=== PATIENT | female | born 1940 | race Caucasian/White ===

== ENCOUNTER 2018-12-02 23:27 | Inpatient (IN) | payer MEDICARE, BC ==
[2018-12-02] MEDS ORDERED: RINGERS SOLUTION,LACTATED 1,000 ML IV ONE (23:42)
[2018-12-02] MEDS ORDERED: ACETAMINOPHEN 325 MG TABLET PO ONE (23:43)
--- NOTE | 2018-12-02 23:49 | ER Document Report ---
ED General - General Stated Complaint: FLANK PAIN Time Seen by Provider: 12/02/18 23:29 - HPI Notes: Patient is a 78-year-old female that presents to the emergency department for chief complaint of headache, confusion and abdominal pain. Patient's daughter states that she is usually very oriented and highly functioning. Today she seemed to be confused and was disoriented to time. Patient began complaining of lower abdominal pressure and pain hence states it feels like her bladder has prolapsed. She reports a history of bladder prolapse in the past. She states she has had urinary urgency and incontinence today but denies any dysuria. Patient denies known fevers or chills, cough and congestion, nausea and vomiting. She is also complaining of pain in the back of her neck and right scapular region which she states is chronic for her. She did take Tylenol around 2 PM this afternoon. Past Medical History: Hypertension, bladder prolapse, varicose veins Past Surgical History: Reviewed in chart Social History: Denies tobacco and alcohol use Family History: Reviewed and noncontributory for presenting illness Allergies: Reviewed, see documented allergy list. REVIEW OF SYSTEMS: CONSTITUTIONAL : No fever No chills No diaphoresis No recent illness EENT: No vision changes No congestion No sore throat CARDIOVASCULAR: No chest pain No palpitations RESPIRATORY: No shortness of breath No cough No difficulty breathing GASTROINTESTINAL: abdominal pain No nausea No vomiting No diarrhea GENITOURINARY: No dysuria No hematuria difficulty urinating Urinary urgency Urinary incontinence MUSCULOSKELETAL: No back pain No leg pain No arm pain SKIN: No rashes No lesions LYMPHATIC: No swollen, enlarged glands. NEUROLOGICAL: No lightheadedness No headache No weakness No paresthesias PSYCHIATRIC: No anxiety No depression PHYSICAL EXAMINATION: Vital signs reviewed, nursing noted reviewed. GENERAL: Well-appearing, well-nourished and in no acute distress. HEAD: Atraumatic, normocephalic. EYES: Eyes appear normal, extraocular movements intact, sclera anicteric, conjunctiva are normal. ENT: nares patent, oropharynx clear without exudates. Moist mucous membranes. NECK: Normal range of motion, supple without lymphadenopathy LUNGS: Breath sounds clear to auscultation bilaterally and equal. No wheezes rales or rhonchi. HEART: Regular rate and rhythm without murmurs ABDOMEN: Soft, nontender, normoactive bowel sounds. No rebound, guarding, or rigidity. No masses appreciated. : Vulvar erythema, minimal bladder prolapse EXTREMITIES: Nontender, good range of motion, no pitting or edema. NEUROLOGICAL: Oriented to person and place, disoriented to time. Moves all extremities spontaneously Motor and sensory grossly intact on exam. PSYCH: Normal mood, normal affect. SKIN: Warm, Dry, normal turgor, no rashes or lesions noted on exposed skin - Related Data Allergies/Adverse Reactions: cephalexin [From Keflex] Allergy (Verified 12/03/18 01:40) sulfamethoxazole [From Bactrim] Allergy (Verified 12/03/18 01:40) tamsulosin [From Flomax] Allergy (Verified 12/03/18 01:40) trimethoprim [From Bactrim] Allergy (Verified 12/03/18 01:40) Past Medical History - Social History Smoking Status: Never Smoker Family History: Reviewed & Not Pertinent Physical Exam - Vital signs Vitals: Resp Pulse Ox 24 H 93 12/02/18 23:37 12/02/18 23:37 Course - Re-evaluation Re-evalutation: 12/02/18 23:42 Vitals reviewed. Nursing notes reviewed. Patient's blood pressure was low when EMS arrived and has improved since receiving 500 mL normal saline by EMS. She is running a fever and will be given Tylenol. Patient placed on telemetry monitoring and IV fluids have been ordered. 12/03/18 01:34 Patient was reevaluated. Her blood pressure has significantly improved from 85 systolic for EMS 149 after 1500 mL IV bolus. Patient states she is feeling better after Tylenol. Her lab work shows elevated WBC count at 15 and she is meeting sepsis criteria and has been given broad-spectrum antibiotics. She has a normal lactic acid level. Urinalysis is negative for infection. Urine cultu re has been sent. Chest x-ray shows no acute pulmonary disease with questionable fluid around the left lung. Patient's lab work does show a slight elevation of total bili with normal LFTs and direct bili. She has no right upper quadrant tenderness to suggest cholecystitis. CT scan of her abdomen will be added on for further evaluation of her lower abdominal pain in the setting of sepsis without source. Patient's care was discussed with Dr. Ross who has accepted admission. Patient and family in agreement with this plan of care. Laboratory 12/02/18 12/02/18 12/02/18 23:42 23:42 23:42 WBC 15.2 H RBC 3.78 Hgb 12.0 Hct 36.1 MCV 96 MCH 31.9 MCHC 33.3 RDW 13.0 Plt Count 243 Seg Neutrophils % 82.0 H Lymphocytes % 9.5 L Monocytes % 7.4 Eosinophils % 0.5 Basophils % 0.6 Absolute Neutrophils 12.5 H Absolute Lymphocytes 1.4 Absolute Monocytes 1.1 Absolute Eosinophils 0.1 Absolute Basophils 0.1 PT 13.8 INR 1.01 VBG pH VBG pCO2 VBG HCO3 VBG Base Excess Sodium 138.4 Potassium 4.2 Chloride 102 Carbon Dioxide 27 Anion Gap 9 BUN 18 Creatinine 1.17 Est GFR ( Amer) 54 L Est GFR (Non-Af Amer) 45 L Glucose 140 H Lactic Acid Calcium 9.3 Total Bilirubin 2.9 H Direct Bilirubin 0.4 Neonat Total Bilirubin Not Reportable Neonat Direct Bilirubin Not Reportable Neonat Indirect Bili Not Reportable AST 24 ALT 34 Alkaline Phosphatase 58 Troponin I Total Protein 6.9 Albumin 3.9 Urine Color Urine Appearance Urine pH Ur Specific [place] Urine Protein Urine Glucose (UA) Urine Ketones Urine Blood Urine Nitrite Urine Bilirubin Urine Urobilinogen Ur Leukocyte Esterase Urine WBC (Auto) Urine RBC (Auto) U Hyaline Cast (Auto) Squamous Epi Cells Auto Urine Mucus (Auto) Urine Ascorbic Acid 12/02/18 12/02/18 12/03/18 23:42 23:42 00:12 WBC RBC Hgb Hct MCV MCH MCHC RDW Plt Count Seg Neutrophils % Lymphocytes % Monocytes % Eosinophils % Basophils % Absolute Neutrophils Absolute Lymphocytes Absolute Monocytes Absolute Eosinophils Absolute Basophils PT INR VBG pH Cancelled VBG pCO2 Cancelled VBG HCO3 Cancelled VBG Base Excess Cancelled Sodium Potassium Chloride Carbon Dioxide Anion Gap BUN Creatinine Est GFR ( Amer) Est GFR (Non-Af Amer) Glucose Lactic Acid 1.6 Calcium Total Bilirubin Direct Bilirubin Neonat Total Bilirubin Neonat Direct Bilirubin Neonat Indirect Bili AST ALT Alkaline Phosphatase Troponin I < 0.012 Total Protein Albumin Urine Color Urine Appearance Urine pH Ur Specific [place] Urine Protein Urine Glucose (UA) Urine Ketones Urine Blood Urine Nitrite Urine Bilirubin Urine Urobilinogen Ur Leukocyte Esterase Urine WBC (Auto) Urine RBC (Auto) U Hyaline Cast (Auto) Squamous Epi Cells Auto Urine Mucus (Auto) Urine Ascorbic Acid 12/03/18 12/03/18 00:37 00:47 WBC RBC Hgb Hct MCV MCH MCHC RDW Plt Count Seg Neutrophils % Lymphocytes % Monocytes % Eosinophils % Basophils % Absolute Neutrophils Absolute Lymphocytes Absolute Monocytes Absolute Eosinophils Absolute Basophils PT INR VBG pH 7.42 VBG pCO2 37.0 VBG HCO3 23.2 VBG Base Excess -1.0 Sodium Potassium Chloride Carbon Dioxide Anion Gap BUN Creatinine Est GFR ( Amer) Est GFR (Non-Af Amer) Glucose Lactic Acid Calcium Total Bilirubin Direct Bilirubin Neonat Total Bilirubin Neonat Direct Bilirubin Neonat Indirect Bili AST ALT Alkaline Phosphatase Troponin I Total Protein Albumin Urine Color YELLOW Urine Appearance CLOUDY Urine pH 6.0 Ur Specific [place] 1.017 Urine Protein 100 H Urine Glucose (UA) NEGATIVE Urine Ketones NEGATIVE Urine Blood NEGATIVE Urine Nitrite NEGATIVE Urine Bilirubin NEGATIVE Urine Urobilinogen 2.0 H Ur Leukocyte Esterase NEGATIVE Urine WBC (Auto) 4 Urine RBC (Auto) 1 U Hyaline Cast (Auto) 28 Squamous Epi Cells Auto 1 Urine Mucus (Auto) MANY Urine Ascorbic Acid NEGATIVE Chest X-Ray 12/02/18 23:30 IMPRESSION: Scarring versus fluid in the left lung base Mild cardiac enlargement No acute abnormality is identified. Head CT 12/02/18 23:53 IMPRESSION: 1. No acute intracranial findings. 2. Moderate chronic ischemic white matter changes. - Vital Signs Vital signs: Temp Pulse Resp BP Pulse Ox 98.7 F 85 19 149/53 H 95 12/03/18 01:41 12/02/18 23:46 12/03/18 01:00 12/03/18 01:01 12/03/18 01:00 - Laboratory Result Diagrams: 12/02/18 23:42 12/02/18 23:42 Laboratory results interpreted by me: 12/02/18 12/02/18 12/03/18 23:42 23:42 00:37 WBC 15.2 H Seg Neutrophils % 82.0 H Lymphocytes % 9.5 L Absolute Neutrophils 12.5 H Est GFR ( Amer) 54 L Est GFR (Non-Af Amer) 45 L Glucose 140 H Total Bilirubin 2.9 H Urine Protein 100 H Urine Urobilinogen 2.0 H - EKG Interpretation by Me Additional EKG results interpreted by me: 12/02/18 23:49 Interpreted by myself [id number]: Normal sinus rhythm, rate 86, normal axis, no STEMI Discharge - Discharge Clinical Impression: Lower abdominal pain, Total bilirubin, elevated, Diverticulitis Sepsis Qualifiers: Sepsis type: sepsis due to unspecified organism Qualified Code(s): A41.9 - Sepsis, unspecified organism Altered mental status, unspecified Qualifiers: Altered mental status type: disorientation Qualified Code(s): R41.0 - Di sorientation, unspecified Condition: Stable Disposition: ADMITTED INPATIENT Admitting Provider: Vandana (Hospitalist) Unit Admitted: Telemetry
[2018-12-02 23:54] LABS: ABSOLUTE BASOPHILS # (AUTO) 0.1 10^3/uL (0.0-0.2); ABSOLUTE EOSINOPHILS # (AUTO) 0.1 10^3/uL (0.0-0.6); ABSOLUTE LYMPHOCYTES (AUTO) 1.4 10^3/uL (0.5-4.7); ABSOLUTE MONOCYTES (AUTO) 1.1 10^3/uL (0.1-1.4); ABSOLUTE NEUT (AUTO) 12.5 10^3/uL (1.7-8.2); BASOPHILS % (AUTO) 0.6 % (0-2); EOSINOPHILS % (AUTO) 0.5 % (0-6); HEMATOCRIT 36.1 % (36.0-47.0); LYMPHOCYTES % (AUTO) 9.5 % (13-45); MEAN CORPUSCULAR HEMOGLOBIN 31.9 pg (27.0-33.4); MEAN CORPUSCULAR HGB CONC 33.3 g/dL (32.0-36.0); MEAN CORPUSCULAR VOLUME 96 fl (80-97); MONOCYTES % (AUTO) 7.4 % (3-13); PLATELET COUNT 243 10^3/uL (150-450); RED BLOOD COUNT 3.78 10^6/uL (3.72-5.28); TOTAL CELLS COUNTED % (AUTO) 100 %; WHITE BLOOD COUNT 15.2 10^3/uL (4.0-10.5)
[2018-12-03 00:04] LABS: INTERNATIONAL RATION (INR) 1.01; PROTHROMBIN TIME 13.8 SEC (11.4-15.4)
[2018-12-03 00:08] LABS: ALANINE AMINOTRANSFERASE 34 U/L (9-52); ALBUMIN 3.9 g/dL (3.5-5.0); ALKALINE PHOSPHATASE 58 U/L (38-126); ANION GAP 9 (5-19); ASPARTATE AMINO TRANSFERASE 24 U/L (14-36); BILIRUBIN,DIRECT 0.4 mg/dL (0.0-0.4); BILIRUBIN,TOTAL 2.9 mg/dL (0.2-1.3); BLOOD UREA NITROGEN 18 mg/dL (7-20); CALCIUM 9.3 mg/dL (8.4-10.2); CARBON DIOXIDE 27 mmol/L (22-30); CHLORIDE 102 mmol/L (98-107); GLUCOSE 140 mg/dL (75-110); POTASSIUM 4.2 mmol/L (3.6-5.0); SODIUM 138.4 mmol/L (137-145); TOTAL PROTEIN 6.9 g/dL (6.3-8.2)
[2018-12-03] MEDS ORDERED: CEFTRIAXONE INJ 1000 MG VIAL IV ONE (00:11)
--- NOTE | 2018-12-03 00:18 | RADIOLOGY REPORT (SQ) ---
EXAM DESCRIPTION: XR CHEST 1 VIEW COMPLETED DATE/TME: 12/02/2018 23:30 CLINICAL HISTORY: 78 years Female weakness COMPARISON: None. FINDINGS: Mild cardiac enlargement. Lungs appear hyperinflated. Right lung is clear. There is scarring or fluid in the left lung base. No evidence of edema or consolidation. Degenerative changes in the shoulders bilaterally IMPRESSION: Scarring versus fluid in the left lung base Mild cardiac enlargement No acute abnormality is identified.
--- NOTE | 2018-12-03 00:38 | RADIOLOGY REPORT (SQ) ---
EXAM DESCRIPTION: [facility]: CT HEAD WITHOUT IV CONTRAST CLINICAL HISTORY: 78 years Female; headache TECHNIQUE: Noncontrast CT head. All CT scans at this facility use dose modulation, iterative reconstruction, and/or weight based dosing when appropriate to reduce radiation dose to as low as reasonably achievable. COMPARISON: None. FINDINGS: No acute hemorrhage or mass effect. There are scattered low-density changes in the cerebral white matter bilaterally, nonspecific but typical for moderate chronic small vessel disease. There is no focal for pulmonary lacunar infarct in the posterior margin of the right putamen. No acute cortical edema. Visualized portions of paranasal sinuses and mastoids are clear. Visualized portions of the calvarium are within normal limits. IMPRESSION: 1. No acute intracranial findings. 2. Moderate chronic ischemic white matter changes.
[2018-12-03 00:56] LABS: VENOUS BLOOD HCO3 23.2 mmol/L (20-32); VENOUS BLOOD PH 7.42 (7.30-7.42)
[2018-12-03] MEDS ORDERED: CEFTRIAXONE 1 GM/D5W RTU 1 GM/50 ML RTUPB IV ONE ×2 (01:00→01:06)
[2018-12-03 01:01] LABS: APPEARANCE,URINE CLOUDY; BILIRUBIN,URINE NEGATIVE (NEGATIVE); GLUCOSE, URINE NEGATIVE (NEGATIVE); KETONES,URINE NEGATIVE (NEGATIVE); LEUKOCYTE ESTERASE,URINE NEGATIVE (NEGATIVE); NITRITE,URINE NEGATIVE (NEGATIVE); PROTEIN,URINE 100 mg/dL (NEGATIVE); URINE SPECIFIC GRAVITY 1.017
[2018-12-03 01:07] LABS: COLOR,URINE YELLOW
[2018-12-03] MEDS ORDERED: VANCOMYCIN HCL INJ 1000 MG VIAL IV ONE (01:27)
--- NOTE | 2018-12-03 02:16 | RADIOLOGY REPORT (SQ) ---
CLINICAL HISTORY: abdominal pain COMPARISON: None. TECHNIQUE: CT ABDOMEN PELVIS WITH IV CONTRAST on 12/03/2018 1:13 AM CDT This exam was performed according to our departmental dose-optimization program, which includes automated exposure control, adjustment of the mA and/or kV according to patient size and/or use of iterative reconstruction technique. FINDINGS: Lower lungs are clear. Abdomen: The liver is normal in appearance. There is no biliary dilatation. Gallbladder is normal in appearance. The pancreas and spleen are normal in appearance. The adrenal glands and kidneys are unremarkable. Abdominal aorta is normal in course and caliber without aneurysm. There is no free air. There is no retroperitoneal adenopathy.Abdominal aorta is densely calcified without aneurysm. Pelvis: There are multiple small distal colonic diverticula. There is inflammation surrounding the mid sigmoid colon in the area of a large diverticulum. Urinary bladder is unremarkable. There is no free fluid. Appendix is normal. Skeleton: There are no acute osseous findings. No suspicious bony lesions. IMPRESSION: Suspect acute mid sigmoid colonic diverticulitis.
[2018-12-03] MEDS ORDERED: MAG HYDROX/AL HYDROX/SIMETH SUSP 30 ML UDCUP PO PRN (02:26)
[2018-12-03] MEDS ORDERED: MAGNESIUM HYDROXIDE SUSP 30 ML UDCUP PO PRN (02:26)
[2018-12-03] MEDS ORDERED: RINGERS SOLUTION,LACTATED 1,000 ML IV PRN (02:26)
[2018-12-03] MEDS ORDERED: ONDANSETRON HCL INJ/PF 4 MG/2 ML SDV IV PRN (02:26)
[2018-12-03] MEDS ORDERED: TEMAZEPAM 15 MG CAPSULE PO PRN (02:26)
[2018-12-03] MEDS ORDERED: MORPHINE SULFATE 10 MG/ML INJ IV PRN ×4 (02:32→02:41)
[2018-12-03] MEDS ORDERED: HYDRALAZINE HCL INJ/PF 20 MG/1 ML SDV IV PRN (02:32)
[2018-12-03] MEDS ORDERED: ERTAPENEM SODIUM INJ 1 GM VIAL IV PRN (02:40)
[2018-12-03] MEDS ORDERED: ERTAPENEM SODIUM 1 GM in NORMAL SALINE 50 ML IV SCH ×2 (06:00→08:00)
--- NOTE | 2018-12-03 06:06 | PDOC H&P ---
History of Present Illness Admission Date/PCP: 12/03/2018 GILDA SOTO MD Patient complains of: Abdominal pain History of Present Illness: TRACEY PORRAS is a 78 year old female who presented to the emergency room with an acute history of abdominal pain. Patient along with family admits that she developed lower abdominal pain described as a a moderately severe, nonradiating, continuous pressure sensation in the central lower abdomen/pelvis accompanied by urinary urgency and incontinence. The patient and her family admit that she has had similar prior symptoms with prolapse of her urinary bladder. They have not identified any aggravating or ameliorating factors for her current abdominal pain. In the emergency room she was found to have a low-grade fever, and elevated white blood count and EMS indicated hypotension on their initial assessment that had resolved at the time her BP was recorded in the ER. Therefore she met SIRS criterion and her evaluation had been essentially unrem arkable until a CT of abdomen pelvis was obtained which revealed mild to moderate diverticulitis of the sigmoid region. Patient was subsequently admitted to the hospital for further evaluation and treatment. Past Medical History Cardiac Medical History: Reports: Hypertension, Other - Varicose veins Pulmonary Medical History: Denies: Asthma, Chronic Obstructive Pulmonary Disease (COPD) EENT Medical History: Reports: Eyes - Prescription eyeglasses Denies: Cataracts, Ears - Hearing aids Neurological Medical History: Denies: Hemorrhagic CVA, Ischemic CVA, Seizures Endocrine Medical History: Denies: Diabetes Mellitus Type 1, Diabetes Mellitus Type 2, Hyperthyroidism, Hypothyroidism Renal/ Medical History: Reports: Other - History of urinary bladder prolapse Denies: Chronic Kidney Disease, Nephrolithiasis Malignancy Medical History: Reports: None GI Medical History: Denies: Cirrhosis, Hepatitis Musculoskeltal Medical History: Reports: Arthritis Denies: Gout Skin Medical History: Denies: Eczema, Psoriasis Psychiatric Medical History: Denies: Alcohol Dependency, Substance Abuse, Tobacco Dependency Traumatic Medical History: Reports: None Hematology: Denies: Anemia, Bleeding Tendencies Infectious Medical History: Reports: None Past Surgical History Past Surgical History: Reports: Other - Repair of prolapsed urinary bladder Social History Information Source: Patient Lives with: Spouse/Significant other Smoking Status: Never Smoker Frequency of Alcohol Use: None Hx Recreational Drug Use: No Drugs: None Hx Prescription Drug Abuse: No - Advance Directive Resuscitation Status: Full Code Surrogate healthcare decision maker:: Felicia Trimble her daughter Family History Family History: Hypertension. denies: CAD, DM, Malignancy Parental Family History Reviewed: Yes Children Family History Reviewed: No Sibling(s) Family History Reviewed.: Yes Medication/Allergy Allergies/Adverse Reactions: cephalexin [From Keflex] Allergy (Verified 12/03/18 01:40) sulfamethoxazole [From Bactrim] Allergy (Verified 12/03/18 01:40) tamsulosin [From Flomax] Allergy (Verified 12/03/18 01:40) trimethoprim [From Bactrim] Allergy (Verified 12/03/18 01:40) Review of Systems Constitutional: ABSENT: chills, fever(s) Eyes: ABSENT: visual disturbances, other - Eye pain Ears: ABSENT: hearing changes, other - Ear pain Nose, Mouth, and Throat: ABSENT: mouth pain, sore throat Cardiovascular: ABSENT: chest pain, palpitations Respiratory: ABSENT: cough, dyspnea Gastrointestinal: PRESENT: as per HPI, abdominal pain. ABSENT: constipation, diarrhea, nausea, vomiting Genitourinary: PRESENT: as per HPI, other - Urinary urgency and frequency. ABSENT: dysuria, hematuria Musculoskeletal: PRESENT: back pain - Chronic upper back, neck and shoulder pain on the left. ABSENT: joint swelling, muscle weakness Integumentary: ABSENT: pruritus, rash Neurological: ABSENT: confusion, convulsions, focal weakness, syncope Psychiatric: ABSENT: anxiety, depression Endocrine: ABSENT: cold intolerance, heat intolerance Hematologic/Lymphatic: ABSENT: easy bleeding, easy bruising Physical Exam Vital Signs: Temp Pulse Resp BP Pulse Ox 98.7 F 85 19 149/53 H 95 12/03/18 01:41 12/02/18 23:46 12/03/18 01:00 12/03/18 01:01 12/03/18 01:00 Intake & Output 12/01/18 12/02/18 12/03/18 23:59 23:59 23:59 Intake Total 1050 Balance 1050 Weight 84.6 kg General appearance: PRESENT: no acute distress, cooperative, obese Head exam: PRESENT: atraumatic, normocephalic Eye exam: ABSENT: conjunctival injection, scleral icterus Ear exam: PRESENT: normal external ear exam. ABSENT: bleeding, drainage Mouth exam: PRESENT: dry mucosa, neck supple Neck exam: ABSENT: JVD, thyromegaly, tracheal deviation Respiratory exam: PRESENT: clear to auscultation [place], symmetrical, unlabored Cardiovascular exam: PRESENT: RRR. ABSENT: clicks, gallop, rubs Pulses: PRESENT: normal radial pulses, normal dorsalis pedis pul Vascular exam: PRESENT: normal capillary refill. ABSENT: pallor GI/Abdominal exam: PRESENT: normal bowel sounds, soft, tenderness - Moderate tenderness in the lower abdomen (suprapubic) region on palpation. Rectal exam: PRESENT: deferred Extremities exam: ABSENT: joint swelling, pedal edema Musculoskeletal exam: ABSENT: deformity, dislocation Neurological exam: PRESENT: alert, oriented to person, oriented to place, oriented to time, oriented to situation, CN II-XII grossly intact. ABSENT: motor sensory deficit Psychiatric exam: PRESENT: appropriate affect, normal mood Skin exam: PRESENT: dry, intact, warm. ABSENT: jaundice, rash, urticaria Results Laboratory Results: 12/02/18 23:42 12/02/18 23:42 12/02/18 12/02/18 12/02/18 23:42 23:42 23:42 WBC 15.2 H RBC 3.78 Hgb 12.0 Hct 36.1 MCV 96 MCH 31.9 MCHC 33.3 RDW 13.0 Plt Count 243 Seg Neutrophils % 82.0 H Lymphocytes % 9.5 L Monocytes % 7.4 Eosinophils % 0.5 Basophils % 0.6 Absolute Neutrophils 12.5 H Absolute Lymphocytes 1.4 Absolute Monocytes 1.1 Absolute Eosinophils 0.1 Absolute Basophils 0.1 VBG pH VBG pCO2 VBG HCO3 VBG Base Excess Sodium 138.4 Potassium 4.2 Chloride 102 Carbon Dioxide 27 Anion Gap 9 BUN 18 Creatinine 1.17 Est GFR ( Amer) 54 L Est GFR (Non-Af Amer) 45 L Glucose 140 H Lactic Acid 1.6 Calcium 9.3 Total Bilirubin 2.9 H AST 24 ALT 34 Alkaline Phosphatase 58 Total Protein 6.9 Albumin 3.9 Urine Color Urine Appearance Urine pH Ur Specific [place] Urine Protein Urine Glucose (UA) Urine Ketones Urine Blood Urine Nitrite Ur Leukocyte Esterase Urine WBC (Auto) Urine RBC (Auto) 12/03/18 12/03/18 12/03/18 00:12 00:37 00:47 WBC RBC Hgb Hct MCV MCH MCHC RDW Plt Count Seg Neutrophils % Lymphocytes % Monocytes % Eosinophils % Basophils % Absolute Neutrophils Absolute Lymphocytes Absolute Monocytes Absolute Eosinophils Absolute Basophils VBG pH Cancelled 7.42 VBG pCO2 Cancelled 37.0 VBG HCO3 Cancelled 23.2 VBG Base Excess Cancelled -1.0 Sodium Potassium Chloride Carbon Dioxide Anion Gap BUN Creatinine Est GFR ( Amer) Est GFR (Non-Af Amer) Glucose Lactic Acid Calcium Total Bilirubin AST ALT Alkaline Phosphatase Total Protein Albumin Urine Color YELLOW Urine Appearance CLOUDY Urine pH 6.0 Ur Specific [place] 1.017 Urine Protein 100 H Urine Glucose (UA) NEGATIVE Urine Ketones NEGATIVE Urine Blood NEGATIVE Urine Nitrite NEGATIVE Ur Leukocyte Esterase NEGATIVE Urine WBC (Auto) 4 Urine RBC (Auto) 1 12/02/18 23:42 Troponin I < 0.012 Impressions: Chest X-Ray 12/02/18 23:30 IMPRESSION: Scarring versus fluid in the left lung base Mild cardiac enlargement No acute abnormality is identified. Head CT 12/02/18 23:53 IMPRESSION: 1. No acute intracranial findings. 2. Moderate chronic ischemic white matter changes. Assessment and Plan - Diagnosis (1) SIRS (systemic inflammatory response syndrome) Is this a current diagnosis for this admission?: Yes Plan: Patient's leukocytosis, low-grade fever, transient hypotension (resolved with IV fluids) and altered mental status/confusion are identified as possible signs of sepsis. Patient will be observed closely throughout the remainder of her hospital course for any confirmatory signs of sepsis. Serial lactic acids will be obtained and the patient's CBC metabolic profile and magnesium level be followed on a daily basis. Urine and blood culture results are pending. Empiric treatment with ertapenem will be initiated. (2) Lower abdominal pain Is this a current diagnosis for this admission?: Yes Plan: Patient's lower abdominal pain has been evaluated with a CT scan of the abdomen and pelvis which revealed mild sigmoid diverticulitis. Due to the concern for sepsis initial antibiotic therapy will be ertapenem 1 g IV every 24 hours. Additionally the patient's pain will be treated with morphine sulfate 2 to 4 mg IV every 2 hours as needed on a sliding scale basis. She will receive supportive IV fluids and symptomatic cares per routine as required. Daily CBCs, metabolic profiles and magnesium levels will be obtained to aid in following her course and therapy. A urine and blood culture are pending at this time. (3) Acute diverticulitis of intestine Is this a current diagnosis for this admission?: Yes Plan: Patient's lower abdominal pain has been evaluated with a CT scan of the abdomen and pelvis which revealed mild sigmoid diverticulitis. Due to the concern for sepsis initial antibiotic therapy will be ertapenem 1 g IV every 24 hours. Additionally the patient's pain will be treated with morphine sulfate 2 to 4 mg IV every 2 hours as needed on a sliding scale basis. She will receive supportive IV fluids and symptomatic cares per routine as required. Daily CBCs, metabolic profiles and magnesium levels will be obtained to aid in following her course and therapy. A urine and blood culture are pending at this time. (4) Hypertension Qualifiers: Hypertension type: essential hypertension Qualified Code(s): I10 - Essential (primary) hypertension Is this a current diagnosis for this admission?: Yes Plan: Though the patient was initially hypotensive her blood pressure has rapidly improved to normal if not somewhat elevated after IV rehydration. Patient will be continued on her usual antihypertensive regiment once her medical record has been confirmed by pharmacy. (5) Obesity (BMI 30.0-34.9) Is this a current diagnosis for this admission?: Yes Plan: Dietary consultation could be obtained to help instruct the patient an appropriate diet to deal with diverticulitis and prevent recurrences as well as to assist her in possible weight loss to improve her overall health. - Time Time Spent with patient: 25-34 minutes Medications reviewed and adjusted accordingly: Yes Anticipated discharge: Home - Inpatient Certification Based on my medical assessment, after consideration of the patient's comorbidities, presenting symptoms, or acuity I expect that the services needed warrant INPATIENT care.: Yes I certify that my determination is in accordance with my understanding of Medicare's requirements for reasonable and necessary INPATIENT services [42 CFR 412.3e].: Yes Medical Necessity: Significant Comorbidiites Make Outpatient Treatment Too Risky, Need Close Monitoring Due to Risk of Patient Decompensation, Need For IV Fluids, Need for Neurological Checks, Need for Pain Control, Need for IV Antibiotics, Risk of Complication if Not Cared For in Hospital
[2018-12-03] MEDS: HEPARIN SOD (PORCINE) 5,000 UNIT/ML 1 ML SYRINGE SUBCUT SCH ×3 (06:54→22:03)
--- NOTE | 2018-12-03 06:57 | EKG REPORT ---
SEVERITY:- OTHERWISE NORMAL ECG - SINUS OR ECTOPIC ATRIAL RHYTHM : Confirmed by: Jones Bueno 03-Dec-2018 06:56:44
[2018-12-03] MEDS: ACETAMINOPHEN 325 MG TABLET PO PRN ×2 (08:14→15:44)
[2018-12-03] MEDS: DOCUSATE SODIUM 100 MG CAPSULE PO SCH ×2 (10:02→17:57)
[2018-12-03] MEDS: FAMOTIDINE 20 MG TABLET PO SCH ×3 (10:02→22:11)
--- NOTE | 2018-12-03 16:01 | PDOC PROGRESS REPORT ---
Subjective Progress Note for:: 12/03/18 Subjective:: This is a very pleasant 78 years old female patient with past medical history of hypertension and varicose vein abdominal pain. Her CT scan of the abdomen reported sigmoid diverticulitis. Patient has also leukocytosis of 15,000 and her BMP shows acute kidney injury. Patient has been on ertapenem which I switched her to IV Flagyl and Cipro. Still patient complaining of left lower quadrant pain. I seen her however she states sitting in chair and she is awake alert and oriented. Reason For Visit: ACUTE SIGMOID DIVERTICULITIS, SIRS Physical Exam Vital Signs: Temp Pulse Resp BP Pulse Ox 98.5 F 76 20 144/51 H 100 12/03/18 12:00 12/03/18 12:00 12/03/18 12:00 12/03/18 12:00 12/03/18 12:00 Intake & Output 12/02/18 12/03/18 12/04/18 06:59 06:59 06:59 Intake Total 1272 Balance 1272 Weight 82.9 kg General appearance: PRESENT: no acute distress Head exam: PRESENT: atraumatic Eye exam: PRESENT: conjunctiva pink Mouth exam: PRESENT: dry mucosa Respiratory exam: PRESENT: clear to auscultation [place]. ABSENT: rales, rhonchi, wheezes Cardiovascular exam: PRESENT: RRR. ABSENT: diastolic murmur, rubs, systolic murmur GI/Abdominal exam: PRESENT: normal bowel sounds, soft, tenderness - Left lower quadrant tenderness.. ABSENT: distended, guarding, mass, organolmegaly, rebound Neurological exam: PRESENT: alert, awake, oriented to time, oriented to situation Results Laboratory Results: 12/02/18 23:42 12/02/18 23:42 12/02/18 12/02/18 12/02/18 23:42 23:42 23:42 WBC 15.2 H RBC 3.78 Hgb 12.0 Hct 36.1 MCV 96 MCH 31.9 MCHC 33.3 RDW 13.0 Plt Count 243 Seg Neutrophils % 82.0 H Lymphocytes % 9.5 L Monocytes % 7.4 Eosinophils % 0.5 Basophils % 0.6 Absolute Neutrophils 12.5 H Absolute Lymphocytes 1.4 Absolute Monocytes 1.1 Absolute Eosinophils 0.1 Absolute Basophils 0.1 VBG pH VBG pCO2 VBG HCO3 VBG Base Excess Sodium 138.4 Potassium 4.2 Chloride 102 Carbon Dioxide 27 Anion Gap 9 BUN 18 Creatinine 1.17 Est GFR ( Amer) 54 L Est GFR (Non-Af Amer) 45 L Glucose 140 H Lactic Acid 1.6 Calcium 9.3 Total Bilirubin 2.9 H AST 24 ALT 34 Alkaline Phosphatase 58 Total Protein 6.9 Albumin 3.9 Lipase Urine Color Urine Appearance Urine pH Ur Specific [place] Urine Protein Urine Glucose (UA) Urine Ketones Urine Blood Urine Nitrite Ur Leukocyte Esterase Urine WBC (Auto) Urine RBC (Auto) 12/02/18 12/03/18 12/03/18 23:42 00:12 00:37 WBC RBC Hgb Hct MCV MCH MCHC RDW Plt Count Seg Neutrophils % Lymphocytes % Monocytes % Eosinophils % Basophils % Absolute Neutrophils Absolute Lymphocytes Absolute Monocytes Absolute Eosinophils Absolute Basophils VBG pH Cancelled VBG pCO2 Cancelled VBG HCO3 Cancelled VBG Base Excess Cancelled Sodium Potassium Chloride Carbon Dioxide Anion Gap BUN Creatinine Est GFR ( Amer) Est GFR (Non-Af Amer) Glucose Lactic Acid Calcium Total Bilirubin AST ALT Alkaline Phosphatase Total Protein Albumin Lipase 27.0 Urine Color YELLOW Urine Appearance CLOUDY Urine pH 6.0 Ur Specific [place] 1.017 Urine Protein 100 H Urine Glucose (UA) NEGATIVE Urine Ketones NEGATIVE Urine Blood NEGATIVE Urine Nitrite NEGATIVE Ur Leukocyte Esterase NEGATIVE Urine WBC (Auto) 4 Urine RBC (Auto) 1 12/03/18 12/03/18 12/03/18 00:47 03:29 07:11 WBC RBC Hgb Hct MCV MCH MCHC RDW Plt Count Seg Neutrophils % Lymphocytes % Monocytes % Eosinophils % Basophils % Absolute Neutrophils Absolute Lymphocytes Absolute Monocytes Absolute Eosinophils Absolute Basophils VBG pH 7.42 VBG pCO2 37.0 VBG HCO3 23.2 VBG Base Excess -1.0 Sodium Potassium Chloride Carbon Dioxide Anion Gap BUN Creatinine Est GFR ( Amer) Est GFR (Non-Af Amer) Glucose Lactic Acid 0.9 1.3 Calcium Total Bilirubin AST ALT Alkaline Phosphatase Total Protein Albumin Lipase Urine Color Urine Appearance Urine pH Ur Specific [place] Urine Protein Urine Glucose (UA) Urine Ketones Urine Blood Urine Nitrite Ur Leukocyte Esterase Urine WBC (Auto) Urine RBC (Auto) 12/03/18 11:00 WBC RBC Hgb Hct MCV MCH MCHC RDW Plt Count Seg Neutrophils % Lymphocytes % Monocytes % Eosinophils % Basophils % Absolute Neutrophils Absolute Lymphocytes Absolute Monocytes Absolute Eosinophils Absolute Basophils VBG pH VBG pCO2 VBG HCO3 VBG Base Excess Sodium Potassium Chloride Carbon Dioxide Anion Gap BUN Creatinine Est GFR ( Amer) Est GFR (Non-Af Amer) Glucose Lactic Acid 1.3 Calcium Total Bilirubin AST ALT Alkaline Phosphatase Total Protein Albumin Lipase Urine Color Urine Appearance Urine pH Ur Specific [place] Urine Protein Urine Glucose (UA) Urine Ketones Urine Blood Urine Nitrite Ur Leukocyte Esterase Urine WBC (Auto) Urine RBC (Auto) 12/02/18 23:42 Troponin I < 0.012 Impressions: Chest X-Ray 12/02/18 23:30 IMPRESSION: Scarring versus fluid in the left lung base Mild cardiac enlargement No acute abnormality is identified. Head CT 12/02/18 23:53 IMPRESSION: 1. No acute intracranial findings. 2. Moderate chronic ischemic white matter changes. Abdomen/Pelvis CT 12/03/18 01:13 IMPRESSION: Suspect acute mid sigmoid colonic diverticulitis. Assessment and Plan - Diagnosis (1) Acute sigmoid diverticulitis Is this a current diagnosis for this admission?: Yes Plan: I switched her ertapenem to Flagyl and IV Cipro. I will continue to manage her so her pain. (2) Leukocytosis Is this a current diagnosis for this admission?: Yes Plan: Check a CBC in a.m. (3) Acute kidney injury Is this a current diagnosis for this admission?: Yes Plan: Continue gentle hydration and avoid nephrotoxic agents. (4) Hypertension Qualifiers: Hypertension type: essential hypertension Qualified Code(s): I10 - Essential (primary) hypertension Is this a current diagnosis for this admission?: Yes Plan: Continue her home medications. (5) Obesity (BMI 30.0-34.9) Is this a current diagnosis for this admission?: Yes Plan: Patient advised her to do lifestyle modification.
[2018-12-03] MEDS ORDERED: LOSARTAN POTASSIUM 50 MG TABLET PO SCH (17:00)
[2018-12-03] MEDS: METRONIDAZOLE 500 MG/NS RTU 500 MG/100 ML RTUPB IV SCH (17:58)
[2018-12-03] MEDS: CIPROFLOXACIN 400 MG/D5W RTU 400 MG/200 ML RTUPB IV SCH (22:11)
[2018-12-03] MEDS: LABETALOL HCL 200 MG TABLET PO SCH (22:11)
[2018-12-04] MEDS: METRONIDAZOLE 500 MG/NS RTU 500 MG/100 ML RTUPB IV SCH ×3 (00:59→12:48)
[2018-12-04] MEDS: ACETAMINOPHEN 325 MG TABLET PO PRN ×2 (02:23→19:39)
[2018-12-04 04:44] LABS: ABSOLUTE BASOPHILS # (AUTO) 0.1 10^3/uL (0.0-0.2); ABSOLUTE EOSINOPHILS # (AUTO) 0.2 10^3/uL (0.0-0.6); ABSOLUTE LYMPHOCYTES (AUTO) 1.5 10^3/uL (0.5-4.7); ABSOLUTE NEUT (AUTO) 10.8 10^3/uL (1.7-8.2); BASOPHILS % (AUTO) 0.6 % (0-2); EOSINOPHILS % (AUTO) 1.3 % (0-6); HEMATOCRIT 33.4 % (36.0-47.0); HEMOGLOBIN 11.2 g/dL (12.0-15.5); LYMPHOCYTES % (AUTO) 11.3 % (13-45); MEAN CORPUSCULAR HEMOGLOBIN 31.6 pg (27.0-33.4); MEAN CORPUSCULAR HGB CONC 33.6 g/dL (32.0-36.0); MEAN CORPUSCULAR VOLUME 94 fl (80-97); MONOCYTES % (AUTO) 7.6 % (3-13); PLATELET COUNT 228 10^3/uL (150-450); RED BLOOD COUNT 3.55 10^6/uL (3.72-5.28); SEGMENTED NEUTROPHILS % (AUTO) 79.2 % (42-78); TOTAL CELLS COUNTED % (AUTO) 100 %; WHITE BLOOD COUNT 13.6 10^3/uL (4.0-10.5)
[2018-12-04 05:02] LABS: ANION GAP 11 (5-19); BLOOD UREA NITROGEN 17 mg/dL (7-20); CALCIUM 9.5 mg/dL (8.4-10.2); CARBON DIOXIDE 23 mmol/L (22-30); CHLORIDE 107 mmol/L (98-107); GLUCOSE 114 mg/dL (75-110); POTASSIUM 4.2 mmol/L (3.6-5.0); SODIUM 140.8 mmol/L (137-145)
[2018-12-04] MEDS: HEPARIN SOD (PORCINE) 5,000 UNIT/ML 1 ML SYRINGE SUBCUT SCH ×3 (05:16→22:17)
[2018-12-04 05:17] LABS: FREE T3 3.26 pg/mL (2.77-5.27); FREE T4 (FREE THYROXINE) 1.21 ng/dL (0.78-2.19)
[2018-12-04 05:31] LABS: THYROID STIMULATING HORMONE 2.72 uIU/mL (0.47-4.68)
[2018-12-04] MEDS: FAMOTIDINE 20 MG TABLET PO SCH ×2 (09:43→22:29)
[2018-12-04] MEDS: DOCUSATE SODIUM 100 MG CAPSULE PO SCH ×2 (09:43→18:02)
[2018-12-04] MEDS: LOSARTAN POTASSIUM 50 MG TABLET PO SCH (09:44)
[2018-12-04] MEDS: CIPROFLOXACIN 400 MG/D5W RTU 400 MG/200 ML RTUPB IV SCH (09:44)
[2018-12-04] MEDS: LABETALOL HCL 200 MG TABLET PO SCH ×2 (09:48→22:30)
[2018-12-04] MEDS ORDERED: (PENDING PHARMACY ID) (Telmisartan [Micardis 80 Mg Tablet] 80 MG) PO SCH (10:00)
--- NOTE | 2018-12-04 15:18 | PDOC PROGRESS REPORT ---
Subjective Progress Note for:: 12/04/18 Subjective:: I seen patient resting in bed comfortably. She is awake alert and oriented. She reports her abdominal pain is subsiding. Her white cell count is also trending down. Has been getting IV Cipro and Flagyl. If she remains stable the patient is a candidate for discharge tomorrow. Reason For Visit: ACUTE SIGMOID DIVERTICULITIS, SIRS Physical Exam Vital Signs: Temp Pulse Resp BP Pulse Ox 98.9 F 74 16 118/52 L 97 12/04/18 12:00 12/04/18 12:00 12/04/18 12:00 12/04/18 12:00 12/04/18 12:00 Intake & Output 12/03/18 12/04/18 12/05/18 06:59 06:59 06:59 Intake Total 1272 2716 300 Balance 1272 2716 300 Weight 82.9 kg 83.4 kg General appearance: PRESENT: no acute distress Head exam: PRESENT: atraumatic Eye exam: PRESENT: conjunctiva pink Neck exam: ABSENT: carotid bruit, JVD, lymphadenopathy, thyromegaly Respiratory exam: PRESENT: clear to auscultation [place]. ABSENT: rales, rhonchi, wheezes Cardiovascular exam: PRESENT: RRR. ABSENT: diastolic murmur, rubs, systolic murmur GI/Abdominal exam: PRESENT: normal bowel sounds, soft. ABSENT: distended, guarding, mass, organolmegaly, rebound, tenderness Neurological exam: PRESENT: alert, awake, oriented to time, oriented to situation Results Laboratory Results: 12/04/18 03:15 12/04/18 03:15 12/04/18 12/04/18 12/04/18 03:15 03:15 03:15 WBC 13.6 H RBC 3.55 L Hgb 11.2 L Hct 33.4 L MCV 94 MCH 31.6 MCHC 33.6 RDW 13.0 Plt Count 228 Seg Neutrophils % 79.2 H Lymphocytes % 11.3 L Monocytes % 7.6 Eosinophils % 1.3 Basophils % 0.6 Absolute Neutrophils 10.8 H Absolute Lymphocytes 1.5 Absolute Monocytes 1.0 Absolute Eosinophils 0.2 Absolute Basophils 0.1 Sodium 140.8 Potassium 4.2 Chloride 107 Carbon Dioxide 23 Anion Gap 11 BUN 17 Creatinine 0.92 Est GFR ( Amer) > 60 Est GFR (Non-Af Amer) 59 L Glucose 114 H Calcium 9.5 Magnesium 2.2 TSH 2.72 Free T4 1.21 Free T3 pg/mL 3.26 12/02/18 23:42 Troponin I < 0.012 Impressions: Chest X-Ray 12/02/18 23:30 IMPRESSION: Scarring versus fluid in the left lung base Mild cardiac enlargement No acute abnormality is identified. Head CT 12/02/18 23:53 IMPRESSION: 1. No acute intracranial findings. 2. Moderate chronic ischemic white matter changes. Abdomen/Pelvis CT 12/03/18 01:13 IMPRESSION: Suspect acute mid sigmoid colonic diverticulitis. Assessment and Plan - Diagnosis (1) Acute sigmoid diverticulitis Is this a current diagnosis for this admission?: Yes Plan: I switched her ertapenem to Flagyl and IV Cipro. I will continue to manage her so her pain. (2) Leukocytosis Is this a current diagnosis for this admission?: Yes Plan: Check a CBC in a.m. (3) Acute kidney injury Is this a current diagnosis for this admission?: Yes Plan: Continue gentle hydration and avoid nephrotoxic agents. (4) Hypertension Qualifiers: Hypertension type: essential hypertension Qualified Code(s): I10 - Essential (primary) hypertension Is this a current diagnosis for this admission?: Yes Plan: Continue her home medications. (5) Obesity (BMI 30.0-34.9) Is this a current diagnosis for this admission?: Yes Plan: Patient advised her to do lifestyle modification.
[2018-12-04] MEDS: METRONIDAZOLE 500 MG TABLET PO SCH ×2 (18:02→23:17)
[2018-12-04] MEDS: CIPROFLOXACIN HCL 500 MG TABLET PO SCH (22:29)
[2018-12-05] MEDS: HEPARIN SOD (PORCINE) 5,000 UNIT/ML 1 ML SYRINGE SUBCUT SCH (05:50)
[2018-12-05] MEDS: METRONIDAZOLE 500 MG TABLET PO SCH ×2 (06:35→11:37)
[2018-12-05 07:21] LABS: ABSOLUTE BASOPHILS # (AUTO) 0.1 10^3/uL (0.0-0.2); ABSOLUTE EOSINOPHILS # (AUTO) 0.4 10^3/uL (0.0-0.6); ABSOLUTE LYMPHOCYTES (AUTO) 1.7 10^3/uL (0.5-4.7); ABSOLUTE MONOCYTES (AUTO) 1.2 10^3/uL (0.1-1.4); ABSOLUTE NEUT (AUTO) 7.6 10^3/uL (1.7-8.2); BASOPHILS % (AUTO) 0.9 % (0-2); EOSINOPHILS % (AUTO) 3.7 % (0-6); HEMATOCRIT 32.2 % (36.0-47.0); HEMOGLOBIN 10.8 g/dL (12.0-15.5); LYMPHOCYTES % (AUTO) 15.6 % (13-45); MEAN CORPUSCULAR HEMOGLOBIN 31.6 pg (27.0-33.4); MEAN CORPUSCULAR HGB CONC 33.4 g/dL (32.0-36.0); MEAN CORPUSCULAR VOLUME 94 fl (80-97); MONOCYTES % (AUTO) 11.1 % (3-13); PLATELET COUNT 215 10^3/uL (150-450); RED BLOOD COUNT 3.41 10^6/uL (3.72-5.28); RED CELL DISTRIBUTION WIDTH 12.6 % (11.5-14.0); SEGMENTED NEUTROPHILS % (AUTO) 68.7 % (42-78); TOTAL CELLS COUNTED % (AUTO) 100 %; WHITE BLOOD COUNT 11.1 10^3/uL (4.0-10.5)
[2018-12-05 07:51] LABS: ANION GAP 10 (5-19); BLOOD UREA NITROGEN 19 mg/dL (7-20); CALCIUM 9.5 mg/dL (8.4-10.2); CARBON DIOXIDE 26 mmol/L (22-30); CHLORIDE 107 mmol/L (98-107); GLUCOSE 107 mg/dL (75-110); POTASSIUM 4.3 mmol/L (3.6-5.0); SODIUM 142.9 mmol/L (137-145)
--- NOTE | 2018-12-05 09:54 | PDOC DISCHARGE SUMMARY ---
General - Admit/Disc Date/PCP Admission Date/Primary Care Provider: 12/03/18 01:47 Discharge Date: 12/05/18 - Discharge Diagnosis (1) Acute sigmoid diverticulitis Is this a current diagnosis for this admission?: Yes (2) Leukocytosis Is this a current diagnosis for this admission?: Yes (3) Acute kidney injury Is this a current diagnosis for this admission?: Yes (4) Hypertension Is this a current diagnosis for this admission?: Yes (5) Obesity (BMI 30.0-34.9) Is this a current diagnosis for this admission?: Yes - Additional Information Resuscitation Status: Full Code Home Medications: Labetalol HCl [Normodyne 200 mg Tablet] 200 mg PO Q12 12/03/18 Meloxicam [Mobic] 15 mg PO DAILYP PRN 12/03/18 Telmisartan [Micardis 80 mg Tablet] 80 mg PO DAILY 12/03/18 History of Present Illness History of Present Illness: TRACEY PORRAS is a 78 year old female who presented to the emergency room with an acute history of abdominal pain. Patient along with family admits that she developed lower abdominal pain described as a a moderately severe, nonradiating, continuous pressure sensation in the central lower abdomen/pelvis accompanied by urinary urgency and incontinence. The patient and her family admit that she has had similar prior symptoms with prolapse of her urinary bladder. They have not identified any aggravating or ameliorating factors for her current abdominal pain. In the emergency room she was found to have a low-grade fever, and elevated white blood count and EMS indicated hypotension on their initial assessment that had resolved at the time her BP was recorded in the ER. Therefore she met SIRS criterion and her evaluation had been essentially unremarkable until a CT of abdomen pelvis was obtained which revealed mild to moderate diverticulitis of the sigmoid region. Patient was subsequently admitted to the hospital for further evaluation and treatment. Hospital Course Hospital Course: This is a very pleasant 78 years old female patient with past medical history of hypertension and varicose vein abdominal pain. Her CT scan of the abdomen reported sigmoid diverticulitis. Patient has also leukocytosis of 15,000 and her BMP shows acute kidney injury. Patient has been on ertapenem which I switched her to IV Flagyl and Cipro. Her abdominal pain has improved remarkably. Her white cell count trended to 11,000 and her kidney function is has been improving. Her vital signs and blood works are within normal limits. Patient able to eat and tolerates well. Patient is stable enough to go home. I will send her home with [facility] and continue her home medications. Patient advised to call her primary care physician or come to emergency department if she does not feel well. Physical Exam Vital Signs: Temp Pulse Resp BP Pulse Ox 98.0 F 84 18 149/66 H 98 12/05/18 07:34 12/05/18 07:34 12/05/18 07:34 12/05/18 07:34 12/05/18 07:34 Intake & Output 12/04/18 12/05/18 12/06/18 06:59 06:59 06:59 Intake Total 2716 1217 Balance 2716 1217 Weight 83.4 kg 83.4 kg General appearance: PRESENT: no acute distress Head exam: PRESENT: atraumatic Eye exam: PRESENT: conjunctiva pink Neck exam: ABSENT: carotid bruit, JVD, lymphadenopathy, thyromegaly Respiratory exam: PRESENT: clear to auscultation [place]. ABSENT: rales, rhonchi, wheezes Cardiovascular exam: PRESENT: RRR. ABSENT: diastolic murmur, rubs, systolic murmur Pulses: PRESENT: normal dorsalis pedis pul Rectal exam: PRESENT: tenderness Neurological exam: PRESENT: alert, awake, oriented to time, oriented to situation Results Laboratory Results: 12/05/18 06:22 12/05/18 06:22 12/05/18 12/05/18 06:22 06:22 WBC 11.1 H RBC 3.41 L Hgb 10.8 L Hct 32.2 L MCV 94 MCH 31.6 MCHC 33.4 RDW 12.6 Plt Count 215 Seg Neutrophils % 68.7 Lymphocytes % 15.6 Monocytes % 11.1 Eosinophils % 3.7 Basophils % 0.9 Absolute Neutrophils 7.6 Absolute Lymphocytes 1.7 Absolute Monocytes 1.2 Absolute Eosinophils 0.4 Absolute Basophils 0.1 Sodium 142.9 Potassium 4.3 Chloride 107 Carbon Dioxide 26 Anion Gap 10 BUN 19 Creatinine 1.10 Est GFR ( Amer) 58 L Est GFR (Non-Af Amer) 48 L Glucose 107 Calcium 9.5 Magnesium 2.1 12/03/18 00:37 Catheterized Urine Urine Culture - Final NO GROWTH 2 DAYS 12/02/18 23:42 Troponin I < 0.012 Impressions: Chest X-Ray 12/02/18 23:30 IMPRESSION: Scarring versus fluid in the left lung base Mild cardiac enlargement No acute abnormality is identified. Head CT 12/02/18 23:53 IMPRESSION: 1. No acute intracranial findings. 2. Moderate chronic ischemic white matter changes. Abdomen/Pelvis CT 12/03/18 01:13 IMPRESSION: Suspect acute mid sigmoid colonic diverticulitis. Qualifiers - * PATIENT BEING DISCHARGED WITH ANY OF THE FOLLOWING DIAGNOSIS: No Acute Heart Failure Is this a Heart Failure Patient?: No
[2018-12-05] MEDS: DOCUSATE SODIUM 100 MG CAPSULE PO SCH (11:36)
[2018-12-05] MEDS: LABETALOL HCL 200 MG TABLET PO SCH (11:36)
[2018-12-05] MEDS: CIPROFLOXACIN HCL 500 MG TABLET PO SCH (11:36)
[2018-12-05] MEDS: FAMOTIDINE 20 MG TABLET PO SCH (11:36)
[2018-12-05] MEDS: LOSARTAN POTASSIUM 50 MG TABLET PO SCH (11:36)
[2018-12-05 12:34] VITALS: BP 121/51
== END 2018-12-05 13:15 | disposition home or self-care (01) | DRG 392 ==
LOC: ER 23:27 → EH 12-03 01:47 → 4N 12-03 04:50
PROVIDERS: ADMIT Emergency Medicine; ATTEND Emergency Medicine
DX: K57.32 Diverticulitis of large intestine without perforation or abscess without bleeding (principal); N17.9 Acute kidney failure, unspecified; I10 Essential (primary) hypertension; R51 Headache; D72.829 Elevated white blood cell count, unspecified; E66.9 Obesity, unspecified
CPT/HCPCS: 36415; 51701; 70450; 71045; 74177; 80048; 80053; 81001; 82803; 83605; 83690; 83735; 84439; 84443; 84481; 84484; 85025; 85610; 87040; 87086; 93005; 93010; 96361; 96365; 99285; J0360; J0696; J0744; J1335; J2405; J3370; J3490; J7120